=== PATIENT | female | born 1990 | race African-American/Black ===

== ENCOUNTER 2017-08-08 11:03 | Emergency (ER) | payer MEDICARE ==
[2017-08-08] MEDS ORDERED: Lidocaine 1% (PF) 30 ML VIAL ONE (12:19)
== END 2017-08-08 13:03 | disposition home or self-care (01) ==
LOC: ERS 11:03
DX: L02.411 Cutaneous abscess of right axilla (principal); J45.909 Unspecified asthma, uncomplicated
CPT/HCPCS: 10060; J2001

== ENCOUNTER 2020-02-11 12:37 | Inpatient (IN) | payer MEDICARE, OTHER ==
[2020-02-11] MEDS ORDERED: Iopamidol-370 76% 500 ML 1 ML ONE (13:00)
[2020-02-11 14:19] LABS: #Eosinphils 0.2 thou/uL (0.0-0.7); #Lymphocytes 0.6 thou/uL (1.20-3.40); #Monocytes 0.5 thou/uL (0.11-0.59); #Neutrophils 3.5 thou/uL (1.40-6.50); %Basophils 0.2 % (0.0-1.0); %Eosinophils 3.4 % (0.0-10.0); %Lymphocytes 13.1 % (21.0-51.0); %Monocytes 9.9 % (0.0-10.0); %Neutrophils 73.4 % (42.0-75.0); Hemoglobin 9.2 g/dL (12.0-16.0); Mean Corpuscular HGB CONC 32.1 g/dL (32.0-36.0); Mean Corpuscular Hemoglobin 25.1 pg (27.0-31.0); Mean Corpuscular Volume 78.2 fL (78.0-98.0); Mean Platelet Volume 10.8 fL (7.4-10.4); Platelet Count 275 thou/uL (130-400); RBC Distribution Width 16.9 % (11.5-14.5); Red Blood Cell (RBC) Count 3.66 mill/uL (4.20-5.40); White Blood Cell (WBC) Count 4.8 thou/uL (4.8-10.8)
--- NOTE | 2020-02-11 14:24 | RAD ---
EXAM: Single view of the chest HISTORY: Shortness of breath and tachycardia COMPARISON: None FINDINGS: Single view of the chest shows a normal sized cardiomediastinal silhouette. There is no edouard dence of consolidation, mass, or pleural effusion. The bones are unremarkable. IMPRESSION: No evidence of acute cardiopulmonary disease
[2020-02-11 14:37] LABS: ALT (SGPT) 35 U/L (8-55); AST (SGOT) 86 U/L (5-34); Albumin 3.3 g/dL (3.5-5.0); Alkaline Phosphatase 114 U/L (40-110); Anion Gap 14 mmol/L (10-20); BUN (Urea Nitrogen) 15 mg/dL (7.0-18.7); Bilirubin, Total Less than 0.2 mg/dL (0.2-1.2); Calc. Creatinine Clearance 0 mL/min (70-130); Calcium 8.2 mg/dL (7.8-10.44); Carbon Dioxide 19 mmol/L (22-29); Chloride 105 mmol/L (98-107); Estimated GFR-MDRD Greater than 90; Globulin 5.2 g/dL (2.4-3.5); Glucose 86 mg/dL (70-105); Protein, Total 8.5 g/dL (6.0-8.3); Sodium 135 mmol/L (136-145)
[2020-02-11 14:41] LABS: Potassium 2.9 mmol/L (3.5-5.1)
[2020-02-11 15:26] LABS: Acetaminophen Less than 6.0 mcg/mL (10.0-30.0); Alcohol Less than 10 mg/dL (Less than 10); CK (CPK) 62 U/L (29-168); Lipase 79 U/L (8-78); Salicylate Less than 8.0 mg/dL (15.0-30.0)
[2020-02-11 15:35] LABS: BHCG - Serum Negative (NEGATIVE); Pregs Control Background? CLEAR/WHITE (CLR/WHITE); Pregs Control Bar Appear? YES (CONTROL BAR)
[2020-02-11 15:43] LABS: Bilirubin Negative (Negative); Blood, Urine Negative (Negative); Clarity Clear (Clear); Glucose, Urine (Dipstick) Normal (Negative); Leukocyte 500 Leu/uL (Negative); Nitrite Negative (Negative); Protein, Urine (Dipstick) 30 mg/dL (Neg-Trace); RBC/HPF 0-3 HPF (0-3); Squamous Epithelial 0-3 HPF (0-3); Urobilinogen Normal mg/dL (Less than 2); WBC/HPF 21-50 HPF (0-3)
[2020-02-11 15:45] LABS: Bacteria/HPF 1+ HPF (None Seen)
[2020-02-11 15:48] LABS: Amphetamine Not Detected (NotDetected); Barbiturates Screen Not Detected (NotDetected); Benzodiazepine Screen Not Detected (NotDetected); Cocaine Metabolite Screen Not Detected (NotDetected); Medtox Reader # READER 4; Methadone Not Detected (NotDetected); Methamphetamine Not Detected (NotDetected); Opiate Screen Not Detected (NotDetected); Oxycodone Screen Not Detected (NotDetected); Phencyclidine (PCP) Not Detected (NotDetected); THC/Cannabinoid Screen Not Detected (NotDetected); Tricyclic Screen Not Detected (NotDetected)
[2020-02-11 15:49] LABS: Medtox Control Line Valid? VALID (VALID)
[2020-02-11] MEDS ORDERED: Sodium Chloride 0.9% 100 ML ONE (15:59)
[2020-02-11] MEDS ORDERED: Potassium Chloride 20 MEQ TAB ONE (15:59)
[2020-02-11] MEDS ORDERED: cefTRIAXone\\ROCEPHIN 2 GM VIAL ONE (15:59)
--- NOTE | 2020-02-11 16:26 | CT ---
CTA Angio Chest W WO Con 02/11/2020 3:21 PM Indication: Shortness of breath and tachycardia Technique: Multiple CTA images were obtained of the thorax with IV contrast. 3-D rendering: MIP iris nstructed images were created and reviewed. Comparison: CT of the thorax dated May 18, 2013 Findings: Pulmonary arteries: No central pulmonary embolus is evident. Respiratory motion artifact limits eval uation of the segmental pulmonary branching. Heart and Aorta: Normal appearing. Mediastinum:There is very slight circumferential wall thickening of the esophagus. Lungs:There are patchy areas of groundglass peripheral airspace opacity seen within both upper lobes, right greater than left. There is more dependent areas of patchy airspace opacities within both lower lobes with areas of subsegmental volume loss involving the posterior inferior aspects of both l ower lobes. Pleural space: Clear. Upper Abdomen: No acute abnormality. Osseous Structures: No acute osseous abnormality. Soft tissues:No abnormality. Other findings:None. Impression: 1. No definite central pulmonary embolus demonstrated. Respiratory motion artifact limits evaluation of segmental pulmonary branch and. 2. Bilateral patchy airspace groundglass opacities may reflect edema or pneumonia. This pattern of in volvement can be seen with atypical infectious processes such as Covid 19. Recommend consideration Covid testing.
[2020-02-11] MEDS ORDERED: Dexamethasone 10 MG/ML VIAL ONE (17:18)
[2020-02-11] MEDS ORDERED: WATER IVPB SCH (17:45)
[2020-02-11] MEDS ORDERED: TRIMETHOPRIM IVPB SCH (17:45)
[2020-02-11] MEDS ORDERED: DEXTROSE 5% IVPB SCH (17:45)
[2020-02-11] MEDS ORDERED: SULFAMETHOXAZOLE IVPB SCH (17:45)
[2020-02-11] MEDS ORDERED: Ondansetron PF 4 MG/2 ML Vial IVP PRN (18:16)
[2020-02-11] MEDS ORDERED: Acetaminophen 650 MG Suppository PR PRN (18:16)
[2020-02-11] MEDS ORDERED: Ondansetron ODT 4 MG TAB PO PRN (18:16)
[2020-02-11] MEDS ORDERED: HYDROcodone/Acetaminophen 5/325 mg Tablet PO PRN ×2 (18:16)
[2020-02-11] MEDS ORDERED: Acetaminophen 325 MG TAB PO PRN (18:16)
--- NOTE | 2020-02-11 18:41 | PDOC.HHP ---
Hospitalist HPI - History of Present Illness sob fever History of Present Illness: Case of an 29y/o female with pmhx of HIV who comes to hospital sent by his ID Dr Rao due to tachycardia and sob. patient states she was on her usual state on health until 1-2 weeks ago when she started with intermittent sob. patient states dyspnea has become worse for which she decided to see dr rao. of note , patient has not been taking her HIV medication for years. At the ED patient was found septic and sepsis bundles were started, hospitalist was called for further evaluation and management. patient denies any cough, fever chills diarrhea or dysuria Hospitalist ROS - Review of Systems All other systems reviewed; all pertinent +/- noted in HPI/Subj Hospitalist History - Past Medical History Source: patient Infectious Disease: reports: HIV - Past Surgical History Past Surgical History: reports: no pertinent history - Family History Family History: reports: diabetes mellitus - Social History Smoking Status: Never smoker Alcohol: reports: None Drugs: reports: none Activity level: independent ambulation - Exam General Appearance: NAD, awake alert, ill appearing Eye: PERRL, anicteric sclera ENT: normocephalic atraumatic, no oropharyngeal lesions Neck: supple, symmetric, no JVD, no thyromegaly Heart: no murmur, no gallops, no rubs Heart - other findings: tachycardic Respiratory: CTAB, no wheezes Gastrointestinal: soft, non-tender, non-distended Extremities: no cyanosis, no clubbing, no edema Skin: normal turgor, no lesions, no rashes Neurological: cranial nerve grossly intact, normal sensation to touch, no focal deficits, no new deficit Musculoskeletal: normal tone, normal strength Psychiatric: normal affect, normal behavior, A&O x 3 Hospitalist Results - Labs Result Diagrams: 02/11/20 14:07 02/11/20 14:07 Lab results: WBC 4.8 thou/uL (4.8-10.8) 02/11/20 14:07 Hgb 9.2 g/dL (12.0-16.0) L 02/11/20 14:07 Hct 28.6 % (36.0-47.0) L 02/11/20 14:07 MCV 78.2 fL (78.0-98.0) 02/11/20 14:07 Plt Count 275 thou/uL (130-400) 02/11/20 14:07 Neutrophils % 73.4 % (42.0-75.0) 02/11/20 14:07 Sodium 135 mmol/L (136-145) L 02/11/20 14:07 Potassium 2.9 mmol/L (3.5-5.1) L* 02/11/20 14:07 Chloride 105 mmol/L (98-107) 02/11/20 14:07 Carbon Dioxide 19 mmol/L (22-29) L 02/11/20 14:07 BUN 15 mg/dL (7.0-18.7) 02/11/20 14:07 Creatinine 0.72 mg/dL (0.6-1.1) 02/11/20 14:07 Glucose 86 mg/dL (70-105) 02/11/20 14:07 Lactic Acid 1.2 mmol/L (0.5-2.2) 02/11/20 15:14 Calcium 8.2 mg/dL (7.8-10.44) 02/11/20 14:07 Total Bilirubin Less than 0.2 mg/dL (0.2-1.2) L 02/11/20 14:07 AST 86 U/L (5-34) H 02/11/20 14:07 ALT 35 U/L (8-55) 02/11/20 14:07 Alkaline Phosphatase 114 U/L (40-110) H 02/11/20 14:07 Ammonia 64 umol/L (18-72) 02/11/20 14:54 Creatine Kinase 62 U/L (29-168) 02/11/20 14:54 Serum Total Protein 8.5 g/dL (6.0-8.3) H 02/11/20 14:07 Albumin 3.3 g/dL (3.5-5.0) L 02/11/20 14:07 Lipase 79 U/L (8-78) H 02/11/20 14:54 Urine Ketones Negative mg/dL (Negative) 02/11/20 14:05 Urine Blood Negative (Negative) 02/11/20 14:05 Urine Nitrite Negative (Negative) 02/11/20 14:05 Ur Leukocyte Esterase 500 Wally/uL (Negative) A 02/11/20 14:05 Urine RBC 0-3 HPF (0-3) 02/11/20 14:05 Urine WBC 21-50 HPF (0-3) A 02/11/20 14:05 Ur Squamous Epith Cells 0-3 HPF (0-3) 02/11/20 14:05 Urine Bacteria 1+ HPF (None Seen) A 02/11/20 14:05 - Radiology Interpretation CT scan - chest Additional Comment: b/l lung opacities Chest x-ray Additional Comment: no infiltrates consolidations or effusions Hospitalist H&P A/P - Problem (1) Pneumonia Code(s): J18.9 - PNEUMONIA, UNSPECIFIED ORGANISM Status: Acute (2) COVID-19 Code(s): U07.1 - COVID-19 Status: Acute (3) HIV (human immunodeficiency virus infection) Code(s): B20 - HUMAN IMMUNODEFICIENCY VIRUS [HIV] DISEASE Status: Acute (4) UTI (urinary tract infection) Status: Acute - Plan Plan: 29y/o female with pmhx of hiv not currenlty on tx who comes to hospital due to tachycardia and sob - id dr rao consulted - started on septra and steroids prophylactically for possible PCP infection - f/u blood + urine cultures - uti should also be covered with septra - continue ivfs, normal LA - covid 19 tested - isolation precautions - f/u cd4 count \ -02 supplmentation prn -replace electrolites
[2020-02-11] MEDS ORDERED: Potassium Chloride 20 MEQ TAB PO SCH (19:00)
[2020-02-11 22:13] VITALS: BMI 18.6
[2020-02-11] MEDS: Sodium Chloride 0.9% 1,000 ML IV SCH (22:28)
[2020-02-11] MEDS: predniSONE 20 MG TAB PO SCH (22:28)
[2020-02-12] MEDS: WATER IVPB SCH ×5 (01:11→23:57)
[2020-02-12] MEDS: SULFAMETHOXAZOLE IVPB SCH ×5 (01:11→23:57)
[2020-02-12] MEDS: DEXTROSE 5% IVPB SCH ×5 (01:11→23:57)
[2020-02-12] MEDS: TRIMETHOPRIM IVPB SCH ×5 (01:11→23:57)
[2020-02-12 05:23] LABS: Band 10 % (5-11); Lymphocytes 14 % (21-51); MDiff Complete? YES; Mean Corpuscular HGB CONC 31.5 g/dL (32.0-36.0); Mean Corpuscular Hemoglobin 24.9 pg (27.0-31.0); Mean Platelet Volume 9.9 fL (7.4-10.4); Monocytes 3 % (0-10); Neutrophil 73 % (42-75); Platelet Count 231 thou/uL (130-400); Platelet Morphology Comment Appears Adequate; RBC Distribution Width 16.7 % (11.5-14.5); White Blood Cell (WBC) Count 2.2 thou/uL (4.8-10.8)
[2020-02-12 05:34] LABS: ALT (SGPT) 29 U/L (8-55); AST (SGOT) 58 U/L (5-34); Albumin 2.8 g/dL (3.5-5.0); Alkaline Phosphatase 101 U/L (40-110); Anion Gap 10 mmol/L (10-20); BUN (Urea Nitrogen) 11 mg/dL (7.0-18.7); Bilirubin, Total Less than 0.2 mg/dL (0.2-1.2); Calc. Creatinine Clearance 91 mL/min (70-130); Calcium 7.8 mg/dL (7.8-10.44); Carbon Dioxide 19 mmol/L (22-29); Chloride 116 mmol/L (98-107); Estimated GFR-MDRD Greater than 90; Globulin 4.2 g/dL (2.4-3.5); Glucose 140 mg/dL (70-105); Magnesium 1.5 mg/dL (1.6-2.6); Sodium 142 mmol/L (136-145)
[2020-02-12 05:59] LABS: Potassium 2.9 mmol/L (3.5-5.1)
[2020-02-12] MEDS: Sodium Chloride 0.9% 1,000 ML IV SCH ×2 (06:21→15:19)
[2020-02-12] MEDS ORDERED: Potassium Chloride 20 MEQ TAB PO SCH (06:30)
[2020-02-12] MEDS: Raltegravir Potassium 400 MG TAB PO SCH ×2 (08:27→20:25)
[2020-02-12] MEDS: predniSONE 20 MG TAB PO SCH ×2 (08:27→20:25)
[2020-02-12] MEDS: Enoxaparin Sodium 40 MG/0.4 ML SYRINGE SC SCH (08:27)
[2020-02-12] MEDS: Lopinavir/Ritonavir 200-50mg TAB PO SCH ×2 (08:28→20:25)
[2020-02-12 14:27] LABS: SARS-CoV-2 MS2 Positive; SARS-CoV-2 N Gene Negative; SARS-CoV-2 S Gene Negative; SARS-CoV-2 orf1ab Negative
[2020-02-12] MEDS ORDERED: Fluconazole 100 MG TAB PO SCH (15:00)
--- NOTE | 2020-02-12 15:19 | EKG ---
Test Reason : Blood Pressure : / mmHG Vent. Rate : 130 BPM Atrial Rate : 130 BPM P-R Int : 128 ms QRS Dur : 068 ms QT Int : 304 ms P-R-T Axes : 052 055 055 degrees QTc Int : 447 ms Sinus tachycardia Cannot rule out Anterior infarct , age undetermined Abnormal ECG Confirmed by KIKI YANG, FIONA (12), metropolitan editor MARGIE UMANZOR ([id number]) on 02/12/2020 3:19:08 PM Referred By: Confirmed By:FIONA SWANSON MD
[2020-02-12] MEDS ORDERED: cefTRIAXone\\ROCEPHIN 2 GM in Sodium Chloride 0.9% 100 ML IVPB SCH (16:00)
--- NOTE | 2020-02-12 16:34 | CON ---
DATE OF CONSULTATION: REASON FOR CONSULTATION: Pulmonary infiltrates, HIV seropositivity. HISTORY OF PRESENT ILLNESS: A 29-year-old patient whom I follow in the clinic for many years, who had stopped coming to the clinic visits since 2016. Also, she has stopped taking her medications reportedly because she was caring for her parents. Her mother about 2 years ago and now she has to be caring for her father and she decided to come to see us because she noticed that her weight was going down and she started having respiratory symptoms, become dyspneic on mild effort. I saw her in the clinic yesterday and she had tachypnea, tachycardia, and abnormal lung examination, so I felt that she needed to be admitted for management of likely Pneumocystis pneumonia. No headaches. No visual symptoms. Some sore throat and some cough, but no sputum production. No chest pain. No abdominal pain. Some diarrhea. No genitourinary symptoms. No joint symptoms. 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 PAST MEDICAL HISTORY: 1. HIV seropositivity. 2. Pneumocystis. SURGICAL HISTORY: . SOCIAL HISTORY: Lives with father and children. Does not smoke. No drug use. ALLERGIES: NONE. MEDICATIONS: At the moment, she is on: 1. Prednisone. 2. Bactrim. 3. Lovenox. 4. I started her on antiretroviral therapy. PHYSICAL EXAMINATION: VITAL SIGNS: T-max 97.8, blood pressure 95/61, pulse 80, respirations 14, and O2 saturation 100 on room air. GENERAL: She does appear in distress at the moment. HEENT: Ocular movements are conjugate. LUNGS: With faint inspiratory crackles at right and left base. HEART: S1 and S2. Regular rate. ABDOMEN: Soft and not distended. EXTREMITIES: No joint inflammatory activity. 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 She has evidence of prurigo in the skin. NEUROLOGIC: Speech is normal. Oriented. LABORATORY STUDIES: White cell count was 4.8 and 2.2, hemoglobin 9.2 and 8, MCV 79, and platelets 231 with normal differential. D-dimer 0.75. Sodium 142, potassium 2.9, creatinine 0.64, bilirubin less than 0.2, AST 58, and albumin 2.8. Urinalysis with 21 to 50 wbc's. Two sets of blood cultures thus far no growth. She had a CT angio with patchy areas of ground-glass peripheral airspace opacity within the upper lobes, right greater than left, as well as patchy airspace opacities in lower lobes. ASSESSMENT: 1. Longstanding human immunodeficiency virus infection. 2. Erratic adherence to antiretroviral therapy with advanced immunosuppression and a CD4 cell count of 4. 3. Ground-glass opacities in lung loomis. 4. Tachypnea. 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 COVID is being ruled out because of the epidemic. We will also check for CMV-DNA PCR, cryptococcus antigen, histoplasma antigen. Continue IV Bactrim, transition to oral maybe tomorrow and taper prednisone. I have started her on antiretroviral therapy and the plan is if everything works out, may be discharge her tomorrow or the day after on oral Bactrim for followup in the outpatient setting. I should be able to put her back on her previous antiretroviral therapy, which consists of Prezcobix and Tivicay or we could use a different combination; for example Viread and Tivicay or even use Biktarvy. I have samples of those medications in the office and I will give it to her before discharge planning. Job ID: [id number] MTDD
--- NOTE | 2020-02-12 16:53 | PDOC.HOSPP ---
- Subjective Encounter Date: 02/12/20 Subjective: patient seen on f/u for pneumonia, hypoxia and covid r/o. patient refers feels much better denies fever chills. does refer some cough and dyspnea but much improved when compared to arrival - Objective Vital Signs & Weight: Vital Signs (12 hours) Temp Pulse Resp BP BP Pulse Ox 02/12/20 15:33 97.7 F 97 16 93/63 100 02/12/20 11:50 97.7 F 80 14 95/61 100 02/12/20 08:45 100 02/12/20 08:40 97.8 F 100 18 95/57 L 100 Weight Admit Weight 98 lb 5 oz Weight 98 lb 5 oz I&O: 02/11/20 02/12/20 02/13/20 06:59 06:59 06:59 Intake Total 1520 800 Output Total 450 Balance 1070 800 Result Diagrams: 02/12/20 04:55 02/12/20 04:55 Hospitalist ROS - Review of Systems All other systems reviewed; all pertinent +/- noted in HPI/Subj - Medication Medications: Active Medications Generic Name Dose Route Start Last Admin Trade Name Freq PRN Reason Stop Dose Admin Enoxaparin Sodium 40 mg 02/12/20 09:00 02/12/20 08:27 Lovenox SC [address] Administration Sodium Chloride 1,000 mls @ 100 mls/hr 02/11/20 18:30 02/12/20 15:19 Normal Saline 0.9% IV Not Given .Q10H COURT Trimethoprim/Sulfamethoxazole 250 mls @ 166.667 mls/hr 02/11/20 23:59 11:41 120 mg/ Dextrose/Water IVPB [address] Administration Lopinavir/Ritonavir 2 tab 02/12/20 09:00 02/12/20 08:28 Kaletra PO [address] Administration Prednisone 40 mg 02/11/20 21:00 02/12/20 08:27 Prednisone PO [address] Administration Raltegravir 400 mg 02/12/20 09:00 02/12/20 08:27 Isentress PO [address] Administration Tenofovir Disoproxil Fumarate 300 mg 02/12/20 09:00 02/12/20 08:28 Viread PO [address] Administration - Exam General Appearance: NAD, awake alert, ill appearing Eye: PERRL, anicteric sclera ENT: normocephalic atraumatic, no oropharyngeal lesions Neck: supple, symmetric, no JVD Heart: RRR, no murmur, no gallops Respiratory: CTAB, no wheezes, no rales Gastrointestinal: soft, non-tender, non-distended Extremities: no cyanosis, no clubbing, no edema Skin: normal turgor, no lesions, no rashes Neurological: cranial nerve grossly intact, normal sensation to touch Musculoskeletal: normal tone, normal strength Psychiatric: normal affect, normal behavior, A&O x 3 Hosp A/P (1) Pneumonia Code(s): J18.9 - PNEUMONIA, UNSPECIFIED ORGANISM Status: Acute (2) COVID-19 Code(s): U07.1 - COVID-19 Status: Acute (3) HIV (human immunodeficiency virus infection) Code(s): B20 - HUMAN IMMUNODEFICIENCY VIRUS [HIV] DISEASE Status: Acute (4) UTI (urinary tract infection) Status: Acute (5) Hypokalemia Code(s): E87.6 - HYPOKALEMIA Status: Acute - Plan -continue with bactrim and prednisone - ID consulted following recommendations -weaning steroids, will continue for a total of 5 days - 02 supplementation prn - haart tx started - replaced electrolites - cryptoccocus antigen negative - u/c negative uti was r/o - covid 19 test negative covid r/o - prelim b/c negative
[2020-02-13 04:35] VITALS: TEMP 97.6
[2020-02-13] MEDS: SULFAMETHOXAZOLE IVPB SCH ×2 (05:54→12:37)
[2020-02-13] MEDS: WATER IVPB SCH ×2 (05:54→12:37)
[2020-02-13] MEDS: TRIMETHOPRIM IVPB SCH ×2 (05:54→12:37)
[2020-02-13] MEDS: DEXTROSE 5% IVPB SCH ×2 (05:54→12:37)
[2020-02-13] MEDS: Sodium Chloride 0.9% 1,000 ML IV SCH ×2 (05:56→11:58)
[2020-02-13 06:51] LABS: Anion Gap 11 mmol/L (10-20); BUN (Urea Nitrogen) 12 mg/dL (7.0-18.7); Calc. Creatinine Clearance 96 mL/min (70-130); Calcium 7.9 mg/dL (7.8-10.44); Carbon Dioxide 13 mmol/L (22-29); Chloride 119 mmol/L (98-107); Estimated GFR-MDRD Greater than 90; Glucose 155 mg/dL (70-105); Magnesium 1.5 mg/dL (1.6-2.6); Potassium 3.4 mmol/L (3.5-5.1); Sodium 140 mmol/L (136-145)
[2020-02-13 07:57] VITALS: BP 99/66
[2020-02-13] MEDS ORDERED: Fluconazole 100 MG TAB PO SCH (09:00)
[2020-02-13] MEDS: predniSONE 20 MG TAB PO SCH (09:27)
[2020-02-13] MEDS: Lopinavir/Ritonavir 200-50mg TAB PO SCH (09:27)
[2020-02-13] MEDS: Enoxaparin Sodium 40 MG/0.4 ML SYRINGE SC SCH (09:27)
[2020-02-13] MEDS: Raltegravir Potassium 400 MG TAB PO SCH (10:54)
[2020-02-13] MEDS ORDERED: Potassium Chloride 20 MEQ TAB PO STA (12:50)
--- NOTE | 2020-02-13 13:36 | DIS ---
DATE OF ADMISSION: 02/11/2020 DATE OF DISCHARGE: 02/13/2020 HOSPITAL COURSE: Ms. Arreguin is a 29-year-old female with a medical history of HIV (nonadherent to medications) who presented with shortness of breath and increased heart rate. CT of the chest showed bilateral ground-glass opacities. Infectious Disease was consulted. The patient was diagnosed with PCP pneumonia. The patient was started on antivirals as well as Bactrim and improved promptly. She was discharged on antiviral medications as per ID recommendations, prednisone to complete five days of steroid treatment, and Bactrim for 21 days pending outpatient appointment with Infectious Disease. The patient prior to discharge was reinforced to attend the Infectious Disease appointment for continued treatment of her HIV and PCP. PHYSICAL EXAMINATION: VITAL SIGNS: Blood pressure 99/66, temperature 97.6 Fahrenheit, pulse 76, respiratory rate 16, and oxygen saturation 100% on room air. GENERAL: Lying comfortably in bed, in no apparent distress. Appears emaciated. HEENT: No periauricular, submandibular, or neck lymphadenopathy. PERRL. HEART: Regular rate and rhythm. No murmurs, gallops, or rubs. RESPIRATORY: Clear to auscultation bilaterally. No wheezing or rales. GI: Soft, nontender, nondistended. EXTREMITIES: No edema. NEUROLOGIC: Cranial nerves are grossly intact. PSYCHIATRIC: Proper mood and affect. Alert and oriented x3. MEDICATION LIST: The patient was taking no medications prior to admission. So all medications are new; 1. Kaletra two tabs p.o. b.i.d. 2. Prednisone 40 mg daily. 3. Raltegravir 400 mg p.o. b.i.d. 4. Bactrim Double Strength two tablets p.o. q.8 hours. 5. Tenofovir 300 mg p.o. daily. Job ID: [id number]
[2020-02-14 14:37] LABS: LOG10 HIV-1 RNA 5.808 (.)
[2020-02-15 17:09] LABS: %CD4 (Helper/Inducer) 1.4 % (30.8-58.5); Absolute CD4 4 /uL (359-1519); Lymphocytes/Gated Cell Count 0.3 x10E3/uL (0.7-3.1); Total Lymphocyte 16 % (Not Estab.); WBC Total Count 2.1 x10E3/uL (3.4-10.8)
--- NOTE | 2020-02-16 01:50 | PQF ---
RIKKI CHEEK, RITA [id number] [facility] [id number] CLINICAL DOCUMENTATION CLARIFICATION FORM: POST DISCHARGE Addendum to original discharge summary date: ____ Late entry note date: __ Date: 02/16/2020 ATTN: Rita Rasheed Please exercise your independent, professional judgment in responding to the clarification form. Clinical indicators are provided on the bottom of this form for your review Please check appropriate box(s): [ ] Protein Calorie Malnutrition: [ ] Mild [ ] Moderate [ ] Severe [ ] Other Malnutrition (please specify) __ [ ] Underweight without malnutrition [ ] Cachexia [ ] Other diagnosis [ ] Unable to determine In addition, please specify: Present on Admission (POA): [ ] Yes [ ] No [ x ] Unable to determine CLINICAL INDICATORS - SIGNS / SYMPTOMS / LABS Laboratory 02/10 Serum Total Protein 8.5, Albumin 3.3, Globulin 5.2, ratio 0.6 Nutritional assessment 02/11- BMI of 18.6 Nutritional assessment 02/11- Poor appetite Nutritional assessment 02/11- Decreased appetite, pt taking 50% of breakfast RISK FACTORS Nutritional assessment 02/11- HIV Nutritional assessment 02/11- PCP Pneumonia Nutritional assessment 02/11- r/o Covid TREATMENT: Nutritional assessment 02/11-Dietary consult Nutritional assessment 02/11-Nutritional supplements Nutritional assessment 02/11-Appetite stimulant Nutritional assessment 02/11- Monitor weight Nutritional assessment 02/11-Monitor Intake Moderate Malnutrition (in acute illness) Energy Intake: <75% of estimated energy requirement for > 7 days Weight Loss: 1-2%/1 week; 5%/ 1 month; 7.5%/3 months Other: mild body fat loss; mild muscle mass loss; mild fluid accumulation; Severe Malnutrition (in acute illness) Energy Intake: < 50% of estimated energy requirement for > 5 days Weight Loss: >1-2%/1 week; >5%/1 month; >7.5%/3 months Other: moderate body fat loss; moderate muscle mass loss; moderate- severe fluid accumulation; measurably reduced photography coordinator strength Moderate Malnutrition (in chronic illness) Energy Intake: <75% of estimated energy requirement for >1 month Weight Loss: 5%/1 month; 7.5%/3 months; 10%/6 months; 20%/1 year Other: mild body fat loss; mild muscle mass loss; mild fluid accumulation Severe Malnutrition (in chronic illness) Energy Intake: <75% of estimated energy requirement for >1 month Weight Loss: >5%/1 month; >7.5%/3 months; >10%/6 months; >20%/1 year Other: severe body fat loss; severe muscle mass loss; severe fluid accumulation ; measurably reduced photography coordinator strength (This form is maintained as a part of the permanent medical record) 2014 [employer]. All Rights Reserved [employer] MTDD
[2020-02-17 21:07] LABS: CMV DNA-PCR Test Negative (Negative)
== END 2020-02-13 16:53 | disposition home or self-care (01) | DRG 976 ==
LOC: ERS 12:37 → 2SW 17:27 → T4-B 02-12 18:06
PROVIDERS: ADMIT Internal Medicine; ATTEND Internal Medicine
DX: B20 Human immunodeficiency virus [HIV] disease (principal); B59 Pneumocystosis; Z20.828 Contact with and (suspected) exposure to other viral communicable diseases; E87.6 Hypokalemia; J45.909 Unspecified asthma, uncomplicated; Z79.899 Other long term (current) drug therapy
CPT/HCPCS: 36415; 71045; 71275; 80048; 80053; 80306; 80307; 81003; 81015; 82140; 82550; 83605; 83690; 83735; 84443; 84703; 85007; 85025; 85027; 85048; 85379; 86361; 87040; 87086; 87497; 87536; 87635; 87899; 93005; J0696; J1100; J1650; J3490; J7070; J7512; Q9967; U0003